=== PATIENT | female | born 1960 | race Caucasian/White ===

== ENCOUNTER 2018-01-21 11:22 | Inpatient (IN) | payer BC ==
[2018-01-21] MEDS: METHYLPREDNISOLONE 125 MG INJ IV (12:18)
[2018-01-21] MEDS: IPRATROPIUM (NEB) 0.5 MG/2.5 ML AMP HHN (12:30)
[2018-01-21] MEDS: ALBUTEROL 0.083% (NEB) 2.5 MG/3 ML AMP HHN ×2 (12:30→13:24)
[2018-01-21] MEDS: MAGNESIUM SULFATE 2 GM/50 ML 50 ML IVPB (14:43)
[2018-01-21] MEDS: ALBUTEROL 0.5% (NEB) 2.5 MG/0.5 ML AMP INH (15:10)
[2018-01-21 15:21] LABS: ADD MAN DIFF? NO
[2018-01-21 15:22] LABS: BASOPHILS % 0.1 % (0.0-2.0); HEMATOCRIT 42.3 % (37.0-47.0); HEMOGLOBIN 14.8 g/dl (12.0-16.0); LYMPHOCYTES # 0.9 10^3/ul (0.8-2.9); LYMPHOCYTES % 4.5 % (15.0-51.0); MEAN CORPUSCULAR HEMOGLOBIN 33.2 pg (29.0-33.0); MEAN CORPUSCULAR VOLUME 94.8 fl (82.0-101.0); MEAN PLATELET VOLUME 10.6 fl (7.4-10.4); MONOCYTE # 0.5 10^3/ul (0.3-0.9); MONOCYTES % 2.6 % (0.0-11.0); PLATELET COUNT 261 10^3/UL (140-415); RED BLOOD COUNT 4.46 10^6/ul (4.20-5.40); RED CELL DISTRIBUTION WIDTH 13.6 % (11.5-14.5)
[2018-01-21 15:22] LABS: WHITE BLOOD COUNT 20.6 10^3/ul (4.8-10.8)
[2018-01-21] MEDS ORDERED: ONDANSETRON 4 MG INJ IV (15:30)
[2018-01-21 15:55] LABS: ANION GAP 17 (8-16); BLOOD UREA NITROGEN 15 mg/dl (7-20); CALCIUM 9.7 mg/dl (8.4-10.2); CARBON DIOXIDE 23 mmol/L (21-31); CHLORIDE 106 mmol/L (97-110); CREATININE 0.67 mg/dl (0.44-1.00); GLUCOSE 148 mg/dl (70-220); SODIUM 143 mmol/L (135-144)
[2018-01-21] MEDS ORDERED: NACL 0.9% 3 ML SYG IV (17:00)
[2018-01-21] MEDS: SOD CHLORIDE 0.9% 100 ML (17:15)
[2018-01-21] MEDS: IOHEXOL 100 ML (17:15)
[2018-01-21] MEDS: POTASSIUM CHLORIDE (SR) 20 MEQ TAB PO (17:54)
[2018-01-21] MEDS: ALBUTEROL/IPRATROPIUM (NEB) 3 ML AMP HHN ×2 (18:00→20:58)
[2018-01-21] MEDS: METHYLPREDNISOLONE 40 MG INJ IV (18:18)
[2018-01-21] MEDS: ACETAMINOPHEN 325 MG TAB PO (18:59)
[2018-01-22] MEDS: METHYLPREDNISOLONE 40 MG INJ IV ×5 (00:50→23:50)
[2018-01-22] MEDS: ALBUTEROL/IPRATROPIUM (NEB) 3 ML AMP HHN ×6 (00:55→20:06)
[2018-01-22] MEDS: GUAIFENESIN/DM 5ML CUP PO ×2 (03:01→08:48)
[2018-01-22 06:03] LABS: ADD MAN DIFF? NO
[2018-01-22 06:09] LABS: WHITE BLOOD COUNT 15.4 10^3/ul (4.8-10.8)
[2018-01-22 06:09] LABS: BASOPHILS % 0.1 % (0.0-2.0); HEMATOCRIT 40.5 % (37.0-47.0); HEMOGLOBIN 13.6 g/dl (12.0-16.0); LYMPHOCYTES # 1.3 10^3/ul (0.8-2.9); LYMPHOCYTES % 8.3 % (15.0-51.0); MEAN CORPUSCULAR HEMOGLOBIN 32.3 pg (29.0-33.0); MEAN CORPUSCULAR HGB CONC 33.6 g/dl (32.0-37.0); MEAN CORPUSCULAR VOLUME 96.2 fl (82.0-101.0); MEAN PLATELET VOLUME 11.3 fl (7.4-10.4); MONOCYTE # 0.5 10^3/ul (0.3-0.9); MONOCYTES % 2.9 % (0.0-11.0); NEUTROPHIL # 13.5 10^3/ul (1.6-7.5); NEUTROPHILS % 87.8 % (39.0-77.0); PLATELET COUNT 247 10^3/UL (140-415); RED BLOOD COUNT 4.21 10^6/ul (4.20-5.40); RED CELL DISTRIBUTION WIDTH 13.8 % (11.5-14.5)
[2018-01-22 06:25] LABS: ALANINE AMINOTRANSFERASE 53 IU/L (13-69); ALBUMIN 3.6 g/dl (3.3-4.9); ALBUMIN/GLOBULIN RATIO 1.16; ALKALINE PHOSPHATASE 67 IU/L (42-121); ANION GAP 14 (8-16); ASPARTATE AMINO TRANSFERASE 28 IU/L (15-46); BILIRUBIN,INDIRECT 0.3 mg/dl (0-1.1); BILIRUBIN,TOTAL 0.3 mg/dl (0.2-1.3); BLOOD UREA NITROGEN 18 mg/dl (7-20); CARBON DIOXIDE 27 mmol/L (21-31); CHLORIDE 107 mmol/L (97-110); GLUCOSE 134 mg/dl (70-220); SODIUM 144 mmol/L (135-144); TOTAL PROTEIN 6.7 g/dl (6.1-8.1)
[2018-01-22] MEDS: AZITHROMYCIN 250 MG TAB PO (08:50)
[2018-01-22] MEDS: ENOXAPARIN 40 MG/0.4 ML SYG SC (08:53)
[2018-01-22] MEDS: CEFTRIAXONE 1 GM/50 ML (PMX) 50 ML IVPB (10:30)
[2018-01-23] MEDS: ALBUTEROL/IPRATROPIUM (NEB) 3 ML AMP HHN ×6 (00:34→20:25)
[2018-01-23] MEDS: METHYLPREDNISOLONE 40 MG INJ IV ×3 (05:54→17:41)
[2018-01-23] MEDS: AZITHROMYCIN 250 MG TAB PO (09:36)
[2018-01-23] MEDS: CEFTRIAXONE 1 GM/50 ML (PMX) 50 ML IVPB (09:36)
[2018-01-23] MEDS: ENOXAPARIN 40 MG/0.4 ML SYG SC (09:38)
[2018-01-23] MEDS: OXYMETAZOLINE 0.05% 15 ML NAS SPRAY NASAL (17:47)
[2018-01-24] MEDS: METHYLPREDNISOLONE 40 MG INJ IV ×5 (00:03→23:33)
[2018-01-24] MEDS: ALBUTEROL/IPRATROPIUM (NEB) 3 ML AMP HHN ×6 (00:11→21:34)
[2018-01-24] MEDS: GUAIFENESIN/DM 5ML CUP PO (08:56)
[2018-01-24] MEDS: CEFTRIAXONE 1 GM/50 ML (PMX) 50 ML IVPB (08:57)
[2018-01-24] MEDS: AZITHROMYCIN 250 MG TAB PO (08:57)
[2018-01-24] MEDS: ENOXAPARIN 40 MG/0.4 ML SYG SC (09:05)
[2018-01-24] MEDS: SOD CHLORIDE 0.9% 100 ML (17:02)
[2018-01-24] MEDS: IOHEXOL 300MG/ML 150 ML BTL (17:02)
[2018-01-25] MEDS: ALBUTEROL/IPRATROPIUM (NEB) 3 ML AMP HHN ×6 (00:41→20:42)
[2018-01-25 05:12] LABS: ADD MAN DIFF? NO
[2018-01-25 05:15] LABS: BASOPHIL # 0.1 10^3/ul (0.0-0.1); BASOPHILS % 0.4 % (0.0-2.0); EOSINOPHILS % 0.1 % (0.0-7.0); HEMATOCRIT 40.9 % (37.0-47.0); HEMOGLOBIN 13.9 g/dl (12.0-16.0); LYMPHOCYTES # 2.7 10^3/ul (0.8-2.9); LYMPHOCYTES % 20.1 % (15.0-51.0); MEAN CORPUSCULAR HEMOGLOBIN 32.4 pg (29.0-33.0); MEAN CORPUSCULAR VOLUME 95.3 fl (82.0-101.0); MEAN PLATELET VOLUME 10.8 fl (7.4-10.4); MONOCYTE # 1.1 10^3/ul (0.3-0.9); MONOCYTES % 8.5 % (0.0-11.0); NEUTROPHIL # 9.3 10^3/ul (1.6-7.5); NEUTROPHILS % 68.9 % (39.0-77.0); PLATELET COUNT 251 10^3/UL (140-415); RED BLOOD COUNT 4.29 10^6/ul (4.20-5.40); RED CELL DISTRIBUTION WIDTH 13.2 % (11.5-14.5)
[2018-01-25 05:15] LABS: WHITE BLOOD COUNT 13.5 10^3/ul (4.8-10.8)
[2018-01-25] MEDS: METHYLPREDNISOLONE 40 MG INJ IV ×2 (05:27→11:29)
[2018-01-25 05:44] LABS: ANION GAP 11 (8-16); BLOOD UREA NITROGEN 19 mg/dl (7-20); CALCIUM 9.1 mg/dl (8.4-10.2); CARBON DIOXIDE 28 mmol/L (21-31); CHLORIDE 106 mmol/L (97-110); CREATININE 0.68 mg/dl (0.44-1.00); GLUCOSE 121 mg/dl (70-220); POTASSIUM 4.3 mmol/L (3.5-5.1); SODIUM 141 mmol/L (135-144)
[2018-01-25 06:06] LABS: THYROID STIMULATING HORMONE 0.951 MIU/L (0.465-4.680)
[2018-01-25] MEDS: AZITHROMYCIN 250 MG TAB PO (08:29)
[2018-01-25] MEDS: GUAIFENESIN/DM 5ML CUP PO (08:29)
[2018-01-25] MEDS: CEFTRIAXONE 1 GM/50 ML (PMX) 50 ML IVPB (08:29)
[2018-01-25] MEDS: ENOXAPARIN 40 MG/0.4 ML SYG SC (08:32)
[2018-01-25] MEDS: SALMETEROL/FLUTICASONE 250/50 INHA INH (20:57)
[2018-01-26] MEDS: ALBUTEROL/IPRATROPIUM (NEB) 3 ML AMP HHN ×6 (00:07→20:19)
[2018-01-26] MEDS: GUAIFENESIN/DM 5ML CUP PO (06:49)
[2018-01-26] MEDS: SALMETEROL/FLUTICASONE 250/50 INHA INH ×2 (09:01→21:09)
[2018-01-26] MEDS: AZITHROMYCIN 250 MG TAB PO (09:01)
[2018-01-26] MEDS: CEFTRIAXONE 1 GM/50 ML (PMX) 50 ML IVPB (09:02)
[2018-01-26] MEDS: ENOXAPARIN 40 MG/0.4 ML SYG SC (09:13)
[2018-01-27] MEDS: ALBUTEROL/IPRATROPIUM (NEB) 3 ML AMP HHN ×5 (00:13→17:02)
[2018-01-27] MEDS: SALMETEROL/FLUTICASONE 250/50 INHA INH (09:36)
[2018-01-27] MEDS: ENOXAPARIN 40 MG/0.4 ML SYG SC (09:42)
[2018-01-27] MEDS ORDERED: NICOTINE (14 MG/24 HR) PATCH TRANSDERM (18:00)
[2018-01-27] MEDS ORDERED: ALBUTEROL HFA 8 GM INHALER INH (18:00)
== END 2018-01-27 19:15 | disposition home or self-care (01) | DRG 202 ==
LOC: FTE 11:22 → MS1 01-22 18:49 → MS3 15:22
DX: J45.901 Unspecified asthma with (acute) exacerbation (principal); J18.9 Pneumonia, unspecified organism; J40 Bronchitis, not specified as acute or chronic; J32.9 Chronic sinusitis, unspecified; F17.200 Nicotine dependence, unspecified, uncomplicated; E87.6 Hypokalemia
CPT/HCPCS: 70491; 71045; 71275; 80048; 80053; 82962; 84443; 85025; 87400; 93005; 94640; 94644; 94664; 96374; 96375; 96376; 99285-25